=== PATIENT | female | born 1945 | race Caucasian/White ===

== ENCOUNTER 2021-10-21 11:27 | Day surgery (SDC) | payer MEDICARE, BC, SELFPAY ==
[2021-10-21] MEDS: TETRACAINE 0.5% OPHTH 1 DROP EYE-RIGHT ×2 (11:45→11:50)
[2021-10-21] MEDS: KETOROLAC OPHTH 0.5% 1 DROP EYE-RIGHT ×2 (11:45→11:50)
[2021-10-21] MEDS: SODIUM CHLORIDE 0.9 % (FLUSH) 10 ML SYRINGE IVF (12:00)
--- NOTE | 2021-10-21 12:04 | SUR.PREOP ---
1135 The eye drops brought by the patient (Ketorolac and Prednisolone) are examined and I have determined they are labeled by the patient's pharmacy for this patient as prescribed by the surgeon. The bottles are intact, recently obtained and appear to be correct.
[2021-10-21 12:05] VITALS: BMI 39.8
[2021-10-21 12:10] VITALS: BP 149/82; PULSE 62; RESP 20; TEMP 36.6; O2SAT 97
[2021-10-21] MEDS: TETRACAINE 0.5% OPHTH 2 DROP EYE-RIGHT (12:41)
[2021-10-21] MEDS: TRYPAN BLUE 0.5 ML SYRINGE EYE-RIGHT (12:45)
[2021-10-21] MEDS: BALANCED SALT IRRIG SOLN 15 ML EYE-RIGHT (12:45)
--- NOTE | 2021-10-21 13:09 | P.PCN_ITS ---
Procedure Note Date Seen: 10/21/21 Will [facility] bill your pro fee for this procedure?: Yes Procedure Description: SURGEON: Corina Lafleur MD PREOPERATIVE DIAGNOSIS: Mature cataract, right eye. POSTOPERATIVE DIAGNOSIS: Mature cataract, right eye. NAME OF OPERATION: Phacoemulsification of cataract with posterior chamber intraocular lens implantation in the right eye with trypan blue. ANESTHESIA: Topical. ESTIMATED BLOOD LOSS: Less than 2 cc. COMPLICATIONS: None. PATHOLOGY SPECIMEN: None. INDICATIONS: See consult note for details. The risks, benefits and alternatives of the procedure were explained to the patient, who elected to proceed and signed informed consent to do so. PROCEDURE: The patient was brought to the pre-holding area where the right eye was identified as the operative eye. I placed my initials above this eye. The patient received eye drops consisting of 0.5% tetracaine, 1% tropicamide, 10% phenylephrine, and 0.5% ketorolac. The patient was then brought to the operating room where the left eye was again identified as the operative eye. The eye was prepped with Betadine and draped in the usual sterile ophthalmic fashion. A #15 super-sharp blade was used to create a paracentesis site. 1% non-preserved intracameral lidocaine was injected into the anterior chamber. An air bubble was injected into the anterior chamber. Trypan blue was injected posterior to the air bubble in order to stain the anterior capsule. Balanced salt solution was used to irrigate the anterior chamber. Endocoat was injected into the anterior chamber. A 2.4 mm keratome was used to create a three-plane self-sealing incision 1 mm anterior to the temporal limbus. A cystotome was used to create an anterior capsular leaflet. The Utrata forceps were used to extend this to form a continuous curvilinear capsulorrhexis. Hydrodissection was performed. The cataract was removed with phacoemulsification using the [id number]-[id number] technique. The irrigation and aspiration tip was used to remove the remaining cortex. Healon was injected into the capsular bag. An EDY ZCB00 intraocular lens of 21.5 diopters was injected into the capsular bag. The irrigation and aspiration tip was used to remove the remaining viscoelastic. Balanced salt solution on a cannula was used to hydrate the wound, and the wound was found to be watertight. The pupil was noted to be round. DISPOSITION: The patient was taken to the recovery room and discharged to home in stable condition. The patient was instructed to call me or go to the emergency department with any sudden change, including dramatic loss of vision, severe pain in the eye or eyebrow region, nausea, or vomiting. The patient will follow up in the clinic tomorrow morning. Surgeon: Corina Lafleur MD
[2021-10-21 13:10] VITALS: BP 159/86; PULSE 62; RESP 20; TEMP 37.1; O2SAT 94
--- NOTE | 2021-10-21 13:14 | W.ANESCHARGE ---
Anesthesia Charges Start Date/Time Anesthesia Start Date: 10/21/21 Anesthesia Start Time: 12:37 Stop Date/Time Anesthesia Stop Date: 10/21/21 Anesthesia Stop Time: 13:15 Summary Emergency: No Extremes of Age: Over 72-CPT 98244
--- NOTE | 2021-10-21 13:29 | W.ANESCHARGE ---
Anesthesia Charges Start Date/Time Anesthesia Start Date: 10/21/21 Anesthesia Start Time: 12:37 Stop Date/Time Anesthesia Stop Date: 10/21/21 Anesthesia Stop Time: 13:15 Summary Emergency: No Extremes of Age: Over 72-CPT [id number]
== END 2021-10-21 13:41 | disposition home or self-care (01) ==
PROVIDERS: PCP Family Medicine; Visit Provider Ophthalmology
PROC: (CPT 66984; principal; 2021-10-21 11:30)
DX: H25.89 Other age-related cataract (principal)
CPT/HCPCS: 66984; 00142; 99100; A9270; J2250; J3010; V2632

== ENCOUNTER 2021-11-18 09:50 | Day surgery (SDC) | payer MEDICARE, BC, SELFPAY ==
[2021-11-18 10:10] VITALS: BP 195/100; PULSE 69; RESP 16; TEMP 36.8; O2SAT 99
[2021-11-18] MEDS: KETOROLAC OPHTH 0.5% 1 DROP EYE-LEFT ×2 (10:10→10:15)
[2021-11-18] MEDS: TETRACAINE 0.5% OPHTH 1 DROP EYE-LEFT ×2 (10:10→10:15)
[2021-11-18] MEDS: SODIUM CHLORIDE 0.9 % (FLUSH) 10 ML SYRINGE IVF (10:18)
--- NOTE | 2021-11-18 10:18 | SUR.PREOP ---
The eye drops brought by the patient (Ketorolac and Prednisolone) are examined and I have determined they are labeled by the patient's pharmacy for this patient as prescribed by the surgeon. The bottles are intact, recently obtained and appear to be correct.
[2021-11-18 10:24] VITALS: BMI 39.0
--- NOTE | 2021-11-18 10:28 | SUR.PREOP ---
PATIENT HAS HIGH BP PREVIOUSLY NOTED ON H&P AND ALSO WITH HER LAST CATARACT SURGERY ON RIGHT EYE. ANESTHESIA NOTIFIED. PATIENT ENCOURAGED TO GET ON A MEDICATION FOR THIS.
[2021-11-18] MEDS: TETRACAINE 0.5% OPHTH 2 DROP EYE-LEFT (10:47)
[2021-11-18] MEDS: BALANCED SALT IRRIG SOLN 15 ML EYE-LEFT (10:52)
--- NOTE | 2021-11-18 11:18 | W.ANESCHARGE ---
Anesthesia Charges Start Date/Time Anesthesia Start Date: 11/18/21 Anesthesia Start Time: 10:44 Stop Date/Time Anesthesia Stop Date: 11/18/21 Anesthesia Stop Time: 11:18 Summary Emergency: No Extremes of Age: Over 72-CPT [id number]
[2021-11-18 11:27] VITALS: BP 177/108; PULSE 66; RESP 16; TEMP 36.8; O2SAT 96
--- NOTE | 2021-11-18 13:39 | P.PCN_ITS ---
Procedure Note Date Seen: 11/18/21 Will [facility] bill your pro fee for this procedure?: Yes Procedure Description: SURGEON: Corina Lafleur MD PREOPERATIVE DIAGNOSIS: Mature cataract, left eye. POSTOPERATIVE DIAGNOSIS: Mature cataract, left eye. NAME OF OPERATION: Phacoemulsification of cataract with posterior chamber intraocular lens implantation in the left eye with trypan blue. ANESTHESIA: Topical. ESTIMATED BLOOD LOSS: Less than 2 cc. COMPLICATIONS: None. PATHOLOGY SPECIMEN: None. INDICATIONS: See consult note for details. The risks, benefits and alternatives of the procedure were explained to the patient, who elected to proceed and signed informed consent to do so. PROCEDURE: The patient was brought to the pre-holding area where the left eye was identified as the operative eye. I placed my initials above this eye. The patient received eye drops consisting of 0.5% tetracaine, 1% tropicamide, 10% phenylephrine, and 0.5% ketorolac. The patient was then brought to the operating room where the left eye was again identified as the operative eye. The eye was prepped with Betadine and draped in the usual sterile ophthalmic fashion. A #15 super-sharp blade was used to create a paracentesis site. 1% non-preserved intracameral lidocaine was injected into the anterior chamber. An air bubble was injected into the anterior chamber. Trypan blue was injected posterior to the air bubble in order to stain Endocoat was injected into the anterior chamber. A 2.4 mm keratome was used to create a three-plane self-sealing incision 1 mm anterior to the temporal limbus. A cystotome was used to create an anterior capsular leaflet. The Utrata forceps were used to extend this to form a continuous curvilinear capsulorrhexis. Hydrodissection was performed. The cataract was removed with phacoemulsification using the [id number] technique. The irrigation and aspiration tip was used to remove the remaining cortex. Healon was injected into the capsular bag. An EDY ZCB00 intraocular lens of 21.5 diopters was injected into the capsular bag. The irrigation and aspiration tip was used to remove the remaining viscoelastic. Balanced salt solution on a cannula was used to hydrate the wound, and the wound was found to be watertight. The pupil was noted to be round. DISPOSITION: The patient was taken to the recovery room and discharged to home in stable condition. The patient was instructed to call me or go to the emergency department with any sudden change, including dramatic loss of vision, severe pain in the eye or eyebrow region, nausea, or vomiting. The patient will follow up in the clinic tomorrow morning. Surgeon: Corina Lafleur MD
== END 2021-11-18 11:25 | disposition home or self-care (01) ==
PROVIDERS: PCP Family Medicine; Visit Provider Ophthalmology
PROC: (CPT 66984; principal; 2021-11-18 09:45)
DX: H25.89 Other age-related cataract (principal)
CPT/HCPCS: 66984; 00142; 99100; A9270; J2250; J3010; V2632

== ENCOUNTER 2023-03-24 14:31 | Outpatient (CLI) | payer MEDICARE, BC, SELFPAY | END 2023-03-24 14:32 | disposition home or self-care (01) | LOC: NFLDREF 03-31 11:06 | PROVIDERS: PCP Family Medicine; Referring Provider Family Medicine; Visit Provider Nurse Practitioner Family | DX: R10.9 Unspecified abdominal pain (principal); Z20.828 Contact with and (suspected) exposure to other viral communicable diseases; R19.7 Diarrhea, unspecified; I10 Essential (primary) hypertension | CPT/HCPCS: 87086 ==

== ENCOUNTER 2023-04-16 03:29 | Outpatient (CLI) | payer MEDICARE, BC, SELFPAY | END 2023-04-16 03:30 | disposition home or self-care (01) | LOC: AMB 04-18 11:27 | PROVIDERS: PCP Family Medicine; Visit Provider Internal Medicine | DX: S79.912A Unspecified injury of left hip, initial encounter (principal); W18.30XA Fall on same level, unspecified, initial encounter; Y92.003 Bedroom of unspecified non-institutional (private) residence as the place of occurrence of the external cause | CPT/HCPCS: A0425; A0427 ==